=== PATIENT | male | born 1945 | race Two or more races ===

== ENCOUNTER 2021-03-12 06:00 | Day surgery (SDC) | payer OTHER ==
[~2021-03-12 06:00] MED LIST: BOSWELLIA SERRA10 GM; COZAAR25 MG PO; METFORMIN HCL500 M3 PO; MSM1000 M1 PO; SIMVASTATIN40 MG PO; TAMS0.4C PO
[2021-03-12] MEDS ORDERED: COLACE100 MG PO (07:44)
[2021-03-12] MEDS ORDERED: PERCOCET 5-3251 EACH PO (07:44)
== END 2021-03-12 16:20 | disposition home or self-care (01) ==
LOC: CIR.AMB 06:00 → AMB-ENDOS 09:15 → CIR.AMB 09:45
PROVIDERS: ATTEND Surgery
DX: K64.8 Other hemorrhoids (principal); Z20.822 Contact with and (suspected) exposure to COVID-19